=== PATIENT | female | born 1970 | race Caucasian/White ===

== ENCOUNTER 2016-08-27 17:24 | Emergency (ER) | payer BC ==
[2016-08-27] MEDS ORDERED: Amoxicillin/Potassium Clav 875 MG TAB ONE (17:40)
[2016-08-27] MEDS ORDERED: Ibuprofen 800 MG TAB ONE (17:57)
== END 2016-08-27 18:05 | disposition home or self-care (01) ==
LOC: BURERS 17:24
DX: S61.255A Open bite of left ring finger without damage to nail, initial encounter (principal); L03.012 Cellulitis of left finger; W55.01XA Bitten by cat, initial encounter
CPT/HCPCS: 99283

== ENCOUNTER 2019-06-01 12:15 | Inpatient (IN) | payer BC ==
[2019-06-01] MEDS ORDERED: HYDROcodone/Acetaminophen 5/325 mg Tablet PO PRN (13:08)
[2019-06-01] MEDS ORDERED: HYDROcodone/Acetaminophen 10/325 mg Tablet PO PRN (13:08)
[2019-06-01] MEDS ORDERED: Acetaminophen 325 MG TAB PO PRN (13:08)
[2019-06-01] MEDS ORDERED: Ondansetron ODT 4 MG TAB PO PRN (13:08)
[2019-06-01] MEDS ORDERED: Bisacodyl 10 MG SUPP PR PRN (13:08)
[2019-06-01] MEDS ORDERED: Dextrose 50% Abboject 50 ML SYRINGE SLOW IVP PRN (13:08)
[2019-06-01] MEDS ORDERED: Dextrose 5% in Water 1,000 ML IV PRN (13:08)
[2019-06-01] MEDS ORDERED: Enoxaparin Sodium 40 MG/0.4 ML SYRINGE SC SCH (13:15)
[2019-06-01] MEDS ORDERED: Meropenem 1 GM in Sodium Chloride 0.9% 100 ML IVPB SCH (14:00)
[2019-06-01 14:03] LABS: #Basophils 0.1 thou/uL (0.0-0.2); #Eosinphils 0.1 thou/uL (0.0-0.7); #Lymphocytes 2.2 thou/uL (1.20-3.40); #Monocytes 0.9 thou/uL (0.11-0.59); #Neutrophils 4.9 thou/uL (1.40-6.50); %Basophils 1.3 % (0.0-1.0); %Eosinophils 1.7 % (0.0-10.0); %Lymphocytes 27.2 % (21.0-51.0); %Monocytes 10.5 % (0.0-10.0); %Neutrophils 59.4 % (42.0-75.0); ALT (SGPT) 21 U/L (8-55); AST (SGOT) 18 U/L (5-34); Albumin 3.8 g/dL (3.5-5.0); Alkaline Phosphatase 135 U/L (40-110); Anion Gap 14 mmol/L (10-20); BUN (Urea Nitrogen) 12 mg/dL (7.0-18.7); Bilirubin, Total 0.5 mg/dL (0.2-1.2); Calc. Creatinine Clearance 0 mL/min (70-130); Calcium 9.8 mg/dL (7.8-10.44); Carbon Dioxide 24 mmol/L (22-29); Chloride 102 mmol/L (98-107); Estimated GFR-MDRD 63; Globulin 3.9 g/dL (2.4-3.5); Glucose 326 mg/dL (70-105); Hemoglobin 14.8 g/dL (12.0-16.0); Mean Corpuscular HGB CONC 31.5 g/dL (32.0-36.0); Mean Corpuscular Hemoglobin 28.6 pg (27.0-31.0); Mean Corpuscular Volume 90.7 fL (78.0-98.0); Mean Platelet Volume 8.4 fL (7.4-10.4); Platelet Count 225 thou/uL (130-400); Potassium 3.9 mmol/L (3.5-5.1); Protein, Total 7.7 g/dL (6.0-8.3); RBC Distribution Width 12.3 % (11.5-14.5); Red Blood Cell (RBC) Count 5.19 mill/uL (4.20-5.40); Sodium 136 mmol/L (136-145); White Blood Cell (WBC) Count 8.2 thou/uL (4.8-10.8)
[2019-06-01] MEDS: Meropenem 1,000 MG in Sodium Chloride 0.9% 100 ML IVPB SCH (17:50)
[2019-06-01] MEDS: HumaLOG 300 UNITS/3 ML VIAL SC PRN ×2 (18:15→20:43)
[2019-06-01] MEDS ORDERED: Furosemide 20 MG/2 ML VIAL SLOW IVP SCH (18:30)
[2019-06-01] MEDS: Famotidine 20 MG TAB PO SCH (20:31)
[2019-06-01] MEDS: Atorvastatin Calcium 10 MG TAB PO SCH (20:32)
[2019-06-01] MEDS: Vancomycin HCl 1 GM in Sodium Chloride 0.9% 250 ML 250 ML IVPB SCH (20:32)
[2019-06-01] MEDS: Lantus 1000 UNITS/10 ML VIAL SC SCH (20:33)
[2019-06-01] MEDS ORDERED: Insulin Glargine 65 UNITS in Pre-Filled Syringe 1 EACH SC SCH (21:00)
--- NOTE | 2019-06-02 00:30 | HP ---
CHIEF COMPLAINT: Worsening cellulitis of the right leg. HISTORY OF PRESENT ILLNESS: Ms. Rhodes is a 48-year-old female, with past medical history of morbid obesity, insulin-dependent diabetes mellitus, history of MRSA, and medical noncompliance, who presented to the outpatient setting earlier in the week complaining of redness to the posterior aspect of her right calf. She had recently finished treatment for a wound to the right posterior heel, which resolved with antibiotics and wound care. She was not having any fever, but felt the tightness forming to the right leg. It was slightly sore to the touch. Her noticed that and advised her to seek evaluation. In the clinic, she was thought to have cellulitis. She was started on Keflex and Bactrim and given 1 g of Rocephin. She was instructed to follow up in 48 hours and was seen again yesterday with no increase in progression of the erythema, but continued warmth. She was given another gram of Rocephin and instructed to follow up on Tuesday for another evaluation. However, this morning, she noted that her leg was now warm to the anterior portion and called the office for direction, in which we instructed direct admission for IV antibiotic treatment. She has not had any fever, nausea, vomiting, diarrhea. The patient with a history of medical noncompliance, who has historically had poor diabetic control. Over the last several weeks, I have requested she bring in logs of her glucose values, but she has not. She has resumed her insulin at home for the last couple of weeks and reports that her glucose values have consistently decreased from the 300 to the 200s and now are usually below 200 at home when she checks. She and her have also had some recent stressors in their marriage, which is added to her stress and difficulty with medication compliance. 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 PAST MEDICAL HISTORY: 1. Insulin-dependent diabetes mellitus. 2. Major depression. 3. History of MRSA. 4. Morbid obesity. 5. Chronic venous stasis. 6. Hypertension. 7. History of endometriosis. 8. Lymphedema. PAST SURGICAL HISTORY: Hysterectomy and cholecystectomy. ALLERGIES: NO KNOWN DRUG ALLERGIES. FAMILY HISTORY: Her mother in her 70s of CHF. Her father of coronary artery disease in his 70s. SOCIAL HISTORY: She is . She is a nonsmoker and does not drink alcohol. She does not have any children. She has an aunt that she cares for, who does not drive and does not live with them. Historically has desired full code status. MEDICATIONS: 1. Toujeo 65 units subcu at bedtime. 2. Zocor 20 mg p.o. at bedtime. 3. Lisinopril 10 mg p.o. daily. 4. Metformin 1000 mg p.o. b.i.d. REVIEW OF SYSTEMS: GENERAL: No fever, chills, weakness or rigors. HEENT: Denies vision changes, eye pain, rhinorrhea, nasal congestion, sore throat, ear pain. CARDIOVASCULAR: Denies chest pain, palpitations, orthopnea, PND. RESPIRATORY: Denies cough, wheezing, shortness of breath, hemoptysis. GENITOURINARY: Denies dysuria, urinary frequency, urgency, gross hematuria. GASTROINTESTINAL: Denies nausea, vomiting, constipation, diarrhea, hematochezia , melena. LYMPH: The patient with chronic lymphedema. HEMATOLOGIC: The patient denies bleeding or easy bruising. PSYCHIATRIC: The patient has had some social stressors, but denies any recurrent depressive symptoms or anxiety other than related to recent events at home. PHYSICAL EXAMINATION: VITAL SIGNS: Temperature 98.4, pulse 90, respirations 20, O2 sat 99% on room air, and blood pressure 143/76. GENERAL: Well-developed, morbidly obese, female, in no acute distress , lying supine in bed. Alert and oriented x3. HEENT: Normocephalic and atraumatic. Pupils equally round and reactive to light and accommodation, extraocular muscles intact. Nares are patent without discharge. Tongue protrudes in midline. Wears corrective lenses. NECK: Supple without lymphadenopathy, thyromegaly, JVD or bruit. HEART: Regular rate and rhythm. Normal S1 and S2. No murmurs, clicks, rubs or gallops. LUNGS: Clear to auscultation with good air entry bilaterally. No crackles or wheezes. ABDOMEN: Positive bowel sounds in all 4 quadrants. Soft, nontender, and nondistended. No masses, guarding or rebound tenderness. EXTREMITIES: No cyanosis or clubbing, chronic 2-mm nonpitting edema bilaterally below the knee with venous stasis changes, more pronounced to the distal left lower extremity compared to right with erythema, that is slightly more pronounced to the posterior right calf measuring approximately 1.5 inches in diameter with underlying induration, but no local fluctuance or abscess formation. The anterior right lower extremity is slightly pink in color and warm to the touch. NEUROLOGIC: Cranial nerves 2 through 12 grossly intact with no focal deficits. LABORATORY DATA: White count 8.2 with 59% neutrophils, 27% lymphocytes, hemoglobin 14.8, hematocrit 47.0, and platelets 225. Sodium 136, potassium 3.9, chloride 102, bicarb 24, BUN 12, creatinine 0.94, glucose 326, and calcium 9.8. T bilirubin 0.5, AST 18, ALT 21, alk phos 135, and albumin 3.8. Blood cultures pending x2. ASSESSMENT/PLAN: 1. Right lower extremity cellulitis in diabetic. Failed outpatient treatment. The patient will be admitted and started on meropenem and vancomycin per [facility]. We will have pharmacy to monitor vanc troughs and adjust dosing accordingly. Follow up blood cultures. Repeat CBC and BMP in the a.m. Elevate. If the rash becomes fluctuant, we will perform incision and drainage as appropriate. 2. Insulin-dependent diabetes mellitus. The patient will be placed on her home regimen with Accu-Cheks q.a.c. and at bedtime with a moderate and bedtime correction hyperglycemia algorithm with lispro. She will be continued on metformin. 3. Hypertension. She will be continued on her lisinopril. We will monitor her blood pressure and give a heart healthy diet. 4. Social stressors. The patient denies need for medication treatment at this time. We will monitor. 5. Hyperlipidemia. The patient will be continued on her statin. 6. Morbid obesity. The patient will be encouraged ambulation and weight loss. 7. Prophylaxis. She will be placed on Pepcid and Lovenox subcu secondary to the cellulitis of the lower extremities, for which SCDs would be uncomfortable. 8. Code status. The patient will be a full code. Job ID: [id number] [facility]
[2019-06-02] MEDS ORDERED: Meropenem 1,000 MG in Sodium Chloride 0.9% 100 ML IVPB SCH (02:45)
[2019-06-02] MEDS: Meropenem 1,000 MG in Sodium Chloride 0.9% 100 ML IVPB SCH (02:48)
[2019-06-02 05:42] LABS: Anion Gap 12 mmol/L (10-20); BUN (Urea Nitrogen) 11 mg/dL (7.0-18.7); Calc. Creatinine Clearance 219 mL/min (70-130); Calcium 9.1 mg/dL (7.8-10.44); Carbon Dioxide 26 mmol/L (22-29); Chloride 104 mmol/L (98-107); Estimated GFR-MDRD 86; Glucose 173 mg/dL (70-105); Sodium 138 mmol/L (136-145)
[2019-06-02 05:59] LABS: Band 1 % (5-11); Eosinophils 4 % (0-10); Hemoglobin 13.6 g/dL (12.0-16.0); Lymphocytes 35 % (21-51); MDiff Complete? YES; Mean Corpuscular Hemoglobin 29.6 pg (27.0-31.0); Mean Corpuscular Volume 89.8 fL (78.0-98.0); Mean Platelet Volume 8.2 fL (7.4-10.4); Monocytes 10 % (0-10); Neutrophil 50 % (42-75); Platelet Count 206 thou/uL (130-400); Platelet Morphology Comment Appears Adequate; RBC Distribution Width 12.1 % (11.5-14.5); RBC Morphology Normal; Red Blood Cell (RBC) Count 4.66 mill/uL (4.20-5.40); White Blood Cell (WBC) Count 6.1 thou/uL (4.8-10.8)
[2019-06-02] MEDS ORDERED: [UNRECOGNIZED DRUG - OTHER] SC SCH (09:00)
[2019-06-02] MEDS ORDERED: INSULIN GLARGINE HUM REC ANLOG 65 UNIT SC SCH (09:00)
[2019-06-02] MEDS: Enoxaparin Sodium 40 MG/0.4 ML SYRINGE SC SCH (09:15)
[2019-06-02] MEDS: Famotidine 20 MG TAB PO SCH ×2 (09:16→20:46)
[2019-06-02] MEDS: Lisinopril 10 MG TAB PO SCH (09:16)
[2019-06-02] MEDS: metFORMIN 500 MG TAB PO SCH ×2 (09:17→20:47)
[2019-06-02] MEDS: Vancomycin HCl 1 GM in Sodium Chloride 0.9% 250 ML 250 ML IVPB SCH ×2 (09:18→20:48)
[2019-06-02] MEDS: HumaLOG 300 UNITS/3 ML VIAL SC PRN ×3 (09:21→20:43)
[2019-06-02] MEDS ORDERED: Meropenem 1 GM in Sodium Chloride 0.9% 100 ML IVPB SCH (10:00)
[2019-06-02] MEDS: Meropenem 500 MG in Sodium Chloride 0.9% 100 ML IVPB SCH ×4 (10:59→17:38)
[2019-06-02] MEDS: Meropenem 1 GM in Sodium Chloride 0.9% 100 ML IVPB SCH (19:33)
[2019-06-02] MEDS: Lantus 1000 UNITS/10 ML VIAL SC SCH (20:43)
[2019-06-02] MEDS: Atorvastatin Calcium 10 MG TAB PO SCH (20:46)
[2019-06-03] MEDS ORDERED: Meropenem 1 GM in Sodium Chloride 0.9% 100 ML IVPB SCH (02:00)
[2019-06-03] MEDS: Meropenem 1 GM in Sodium Chloride 0.9% 100 ML IVPB SCH ×3 (02:11→17:28)
[2019-06-03] MEDS: Enoxaparin Sodium 40 MG/0.4 ML SYRINGE SC SCH (08:52)
[2019-06-03] MEDS: metFORMIN 500 MG TAB PO SCH ×2 (08:53→21:44)
[2019-06-03] MEDS: Lisinopril 10 MG TAB PO SCH (08:53)
[2019-06-03] MEDS: Famotidine 20 MG TAB PO SCH ×2 (08:53→21:44)
[2019-06-03] MEDS: Vancomycin HCl 1 GM in Sodium Chloride 0.9% 250 ML 250 ML IVPB SCH ×2 (08:55→21:43)
[2019-06-03] MEDS: HumaLOG 300 UNITS/3 ML VIAL SC PRN ×3 (12:53→21:48)
[2019-06-03] MEDS: Atorvastatin Calcium 10 MG TAB PO SCH (21:44)
[2019-06-03] MEDS: Lantus 1000 UNITS/10 ML VIAL SC SCH (21:48)
[2019-06-04] MEDS: Meropenem 1 GM in Sodium Chloride 0.9% 100 ML IVPB SCH ×3 (01:29→19:47)
[2019-06-04 05:49] LABS: Hemoglobin 14.2 g/dL (12.0-16.0); Platelet Count 234 thou/uL (130-400)
[2019-06-04 05:58] LABS: Calc. Creatinine Clearance 263 mL/min (70-130); Estimated GFR-MDRD Greater than 90
[2019-06-04] MEDS: Enoxaparin Sodium 40 MG/0.4 ML SYRINGE SC SCH (08:56)
[2019-06-04] MEDS: metFORMIN 500 MG TAB PO SCH ×2 (08:57→21:07)
[2019-06-04] MEDS: Vancomycin HCl 1 GM in Sodium Chloride 0.9% 250 ML 250 ML IVPB SCH ×2 (08:58→22:06)
[2019-06-04] MEDS: Famotidine 20 MG TAB PO SCH ×2 (08:58→21:07)
[2019-06-04] MEDS: Lisinopril 10 MG TAB PO SCH (08:58)
[2019-06-04 14:09] VITALS: BMI 55.0
[2019-06-04 20:23] LABS: Vancomycin, Trough 6.2 ug/mL
[2019-06-04] MEDS: Atorvastatin Calcium 10 MG TAB PO SCH (21:07)
[2019-06-04] MEDS: Lantus 1000 UNITS/10 ML VIAL SC SCH (21:07)
[2019-06-05] MEDS: Meropenem 1 GM in Sodium Chloride 0.9% 100 ML IVPB SCH ×3 (02:42→17:46)
[2019-06-05] MEDS ORDERED: HumaLOG 300 UNITS/3 ML VIAL SC SCH (07:30)
[2019-06-05] MEDS: Vancomycin HCl 750 MG in Sodium Chloride 0.9% 250 ML 250 ML IVPB SCH ×2 (08:33→21:05)
[2019-06-05] MEDS ORDERED: Vancomycin HCl 1.75 GM in Sodium Chloride 0.9% 500 ML IVPB SCH (09:00)
[2019-06-05] MEDS ORDERED: Vancomycin HCl 1 GM in Sodium Chloride 0.9% 250 ML 250 ML IVPB SCH (09:00)
[2019-06-05] MEDS: Enoxaparin Sodium 40 MG/0.4 ML SYRINGE SC SCH (09:11)
[2019-06-05] MEDS: Famotidine 20 MG TAB PO SCH ×2 (09:11→21:02)
[2019-06-05] MEDS: Lisinopril 10 MG TAB PO SCH (09:12)
[2019-06-05] MEDS: metFORMIN 500 MG TAB PO SCH ×2 (09:13→21:03)
[2019-06-05] MEDS: Vancomycin HCl 1 GM in Sodium Chloride 0.9% 250 ML 250 ML IVPB SCH ×2 (10:37→21:05)
[2019-06-05] MEDS: HumaLOG 300 UNITS/3 ML VIAL SC PRN (12:55)
[2019-06-05] MEDS: Lantus 1000 UNITS/10 ML VIAL SC SCH (21:01)
[2019-06-05] MEDS: Atorvastatin Calcium 10 MG TAB PO SCH (21:03)
[2019-06-06] MEDS: Meropenem 1 GM in Sodium Chloride 0.9% 100 ML IVPB SCH ×3 (01:19→16:14)
[2019-06-06 06:12] LABS: #Basophils 0.1 thou/uL (0.0-0.2); #Eosinphils 0.2 thou/uL (0.0-0.7); #Lymphocytes 2.4 thou/uL (1.20-3.40); #Monocytes 0.9 thou/uL (0.11-0.59); #Neutrophils 2.7 thou/uL (1.40-6.50); %Basophils 1.5 % (0.0-1.0); %Eosinophils 3.5 % (0.0-10.0); %Lymphocytes 38.3 % (21.0-51.0); %Monocytes 13.8 % (0.0-10.0); Hemoglobin 14.3 g/dL (12.0-16.0); Mean Corpuscular HGB CONC 32.3 g/dL (32.0-36.0); Mean Corpuscular Volume 89.8 fL (78.0-98.0); Mean Platelet Volume 7.8 fL (7.4-10.4); Platelet Count 270 thou/uL (130-400); Red Blood Cell (RBC) Count 4.94 mill/uL (4.20-5.40); White Blood Cell (WBC) Count 6.3 thou/uL (4.8-10.8)
[2019-06-06 06:23] LABS: Anion Gap 14 mmol/L (10-20); BUN (Urea Nitrogen) 11 mg/dL (7.0-18.7); Calc. Creatinine Clearance 256 mL/min (70-130); Calcium 9.5 mg/dL (7.8-10.44); Carbon Dioxide 24 mmol/L (22-29); Chloride 106 mmol/L (98-107); Estimated GFR-MDRD Greater than 90; Glucose 99 mg/dL (70-105); Potassium 3.5 mmol/L (3.5-5.1); Sodium 140 mmol/L (136-145)
[2019-06-06] MEDS ORDERED: HumaLOG 300 UNITS/3 ML VIAL SC SCH (07:30)
[2019-06-06] MEDS: metFORMIN 500 MG TAB PO SCH ×2 (07:51→21:16)
[2019-06-06] MEDS: Famotidine 20 MG TAB PO SCH ×2 (07:51→21:16)
[2019-06-06] MEDS: Lisinopril 10 MG TAB PO SCH (07:52)
[2019-06-06] MEDS: Enoxaparin Sodium 40 MG/0.4 ML SYRINGE SC SCH (08:01)
[2019-06-06] MEDS: Vancomycin HCl 750 MG in Sodium Chloride 0.9% 250 ML 250 ML IVPB SCH ×2 (09:08→21:26)
[2019-06-06] MEDS: Vancomycin HCl 1 GM in Sodium Chloride 0.9% 250 ML 250 ML IVPB SCH ×2 (09:08→21:25)
[2019-06-06] MEDS: HumaLOG 300 UNITS/3 ML VIAL SC SCH ×2 (13:03→17:55)
[2019-06-06] MEDS: Atorvastatin Calcium 10 MG TAB PO SCH (21:16)
[2019-06-06] MEDS: Lantus 1000 UNITS/10 ML VIAL SC SCH (21:36)
[2019-06-07] MEDS: Meropenem 1 GM in Sodium Chloride 0.9% 100 ML IVPB SCH ×2 (00:03→07:36)
[2019-06-07 05:07] VITALS: BP 128/64; TEMP 98
[2019-06-07] MEDS: metFORMIN 500 MG TAB PO SCH (08:43)
[2019-06-07] MEDS: Famotidine 20 MG TAB PO SCH (08:43)
[2019-06-07] MEDS: Lisinopril 10 MG TAB PO SCH (08:44)
[2019-06-07] MEDS: HumaLOG 300 UNITS/3 ML VIAL SC SCH ×2 (08:45→13:23)
[2019-06-07] MEDS: Enoxaparin Sodium 40 MG/0.4 ML SYRINGE SC SCH (08:47)
[2019-06-07] MEDS: Vancomycin HCl 1 GM in Sodium Chloride 0.9% 250 ML 250 ML IVPB SCH (08:48)
[2019-06-07] MEDS: Vancomycin HCl 750 MG in Sodium Chloride 0.9% 250 ML 250 ML IVPB SCH (10:43)
--- NOTE | 2019-06-08 20:31 | DIS ---
DATE OF ADMISSION: 06/01/2019 DATE OF DISCHARGE: 06/07/2019 ADMISSION DIAGNOSES: 1. Right lower extremity cellulitis in a diabetic. 2. Insulin-dependent diabetes mellitus. 3. Hypertension. 4. Social stressors. 5. Hyperlipidemia. 6. Morbid obesity. DISCHARGE DIAGNOSES: 1. Right lower extremity cellulitis in a diabetic. 2. Insulin-dependent diabetes mellitus. 3. Hypertension. 4. Social stressors. 5. Hyperlipidemia. 6. Morbid obesity. PROCEDURES: Blood cultures x2 with no growth at 5 days. HISTORY AND PHYSICAL: Please see dictated report from the date of admission. HOSPITAL COURSE: Ms. Rhodes is a 48-year-old female with past medical history of morbid obesity, insulin-dependent diabetes mellitus, history of previous MRSA and hospitalizations for abscess/panniculitis in the past, and medication noncompliance, who presented to the ambulatory setting with a focal area of erythema to the right posterior calf. She was given Rocephin and attempted outpatient management x 2, but it progressed to include warmth to the anterior portion of the right lower extremity and thus she presented to the emergency department for further evaluation for possible hospitalization over the holiday. The patient had not had any fever at home and had not had any drainage from the area of cellulitis and had no focal abscess. She has a history of type 2 diabetes and the control of this was uncertain as an outpatient. She had not had recent labs despite office request. The patient was admitted, placed on meropenem and vancomycin with the pharmacy adjusting the vancomycin according to the trough values. Over the course of her admission, this was slow to improve with focalization of the cellulitis and resolution of the anterior right lower extremity erythema and warmth. However, even with the cellulitis becoming more localized, it never became fluctuant in order to be drained. However, it has improved to less than half an inch in diameter and she will continue to apply warm compresses to the area 15 minutes 3 times daily going forward and will resume her oral medication of Keflex and Bactrim at her discharge. She has a recent history of a right heel ulcer that has been treated and she is going to go see Podiatry for that and diabetic foot care today after her dismissal here. Regarding her diabetes, her regimen was adjusted and levels controlled with 65 units of Lantus subcu daily and 7 units of Humalog before meals. I am going to dismiss her on 65 units of the Toujeo and 5 units subcu before meals at home and she is going to closely watch her diet. I discussed medication compliance with her extensively and she assures me that she will set reminders to take her insulin and monitor her blood glucose. The patient did have some social stressors at home, but is working through them and did not need any medication for depression or adjustment disorder at this time. DISPOSITION: Discharged home. MEDICATIONS: 1. Toujeo 65 units subcu daily. 2. Simvastatin 20 mg p.o. at bedtime. 3. Lisinopril 10 mg daily. 4. Metformin 1000 mg p.o. b.i.d. 5. Humalog 5 units subcu before meals. CONDITION: Good. FOLLOWUP: With Dr. Dedra Doyle in approximately 3 to 5 days. Job ID: [id number] [facility]
== END 2019-06-07 16:00 | disposition home or self-care (01) | DRG 638 ==
LOC: BURMED 12:15
PROVIDERS: ADMIT Family Medicine; ATTEND Family Medicine
DX: E11.628 Type 2 diabetes mellitus with other skin complications (principal); L03.115 Cellulitis of right lower limb; Z68.43 Body mass index [BMI] 50.0-59.9, adult; Z79.4 Long term (current) use of insulin; I10 Essential (primary) hypertension; E78.5 Hyperlipidemia, unspecified; E66.01 Morbid (severe) obesity due to excess calories; Z91.14 Patient's other noncompliance with medication regimen; F32.9 Major depressive disorder, single episode, unspecified; Z90.49 Acquired absence of other specified parts of digestive tract; Z90.710 Acquired absence of both cervix and uterus; Z79.84 Long term (current) use of oral hypoglycemic drugs; Z79.899 Other long term (current) drug therapy
CPT/HCPCS: 36415; 36416; 80048; 80053; 80202; 82565; 85007; 85014; 85018; 85025; 85027; 85049; 87040; J1650; J1815; J1940; J2185; J3370; J3490; J7050

== ENCOUNTER 2019-07-09 16:14 | Inpatient (IN) | payer BC ==
[2019-07-09 17:35] VITALS: BMI 54.6
[2019-07-09] MEDS ORDERED: Ondansetron ODT 4 MG TAB PO PRN (17:45)
[2019-07-09] MEDS ORDERED: Bisacodyl 10 MG SUPP PR PRN (17:45)
[2019-07-09] MEDS ORDERED: Dextrose 5% in Water 1,000 ML IV PRN (17:52)
[2019-07-09] MEDS ORDERED: Dextrose 50% Abboject 50 ML SYRINGE SLOW IVP PRN (17:52)
[2019-07-09 19:09] LABS: ALT (SGPT) 26 U/L (8-55); AST (SGOT) 21 U/L (5-34); Albumin 3.5 g/dL (3.5-5.0); Alkaline Phosphatase 105 U/L (40-110); Anion Gap 15 mmol/L (10-20); BUN (Urea Nitrogen) 18 mg/dL (7.0-18.7); Bilirubin, Total 0.6 mg/dL (0.2-1.2); Calc. Creatinine Clearance 190 mL/min (70-130); Calcium 10.1 mg/dL (7.8-10.44); Carbon Dioxide 25 mmol/L (22-29); Chloride 101 mmol/L (98-107); Estimated GFR-MDRD 73; Globulin 4.2 g/dL (2.4-3.5); Glucose 200 mg/dL (70-105); Potassium 3.6 mmol/L (3.5-5.1); Protein, Total 7.7 g/dL (6.0-8.3); Sodium 137 mmol/L (136-145)
[2019-07-09 19:17] LABS: Band 11 % (5-11); Hemoglobin 14.7 g/dL (12.0-16.0); Lymphocytes 20 % (21-51); MDiff Complete? YES; Mean Corpuscular Volume 90.6 fL (78.0-98.0); Mean Platelet Volume 9.7 fL (7.4-10.4); Monocytes 7 % (0-10); Neutrophil 62 % (42-75); Platelet Count 192 thou/uL (130-400); RBC Distribution Width 12.1 % (11.5-14.5); Red Blood Cell (RBC) Count 5.07 mill/uL (4.20-5.40); White Blood Cell (WBC) Count 12.1 thou/uL (4.8-10.8)
[2019-07-09] MEDS ORDERED: Vancomycin HCl 1 GM in Sodium Chloride 0.9% 250 ML 250 ML IVPB SCH (20:00)
[2019-07-09] MEDS ORDERED: Vancomycin HCl 1.75 GM in Sodium Chloride 0.9% 500 ML IVPB SCH (21:00)
[2019-07-09] MEDS ORDERED: Vancomycin HCl 750 MG in Sodium Chloride 0.9% 250 ML 250 ML IVPB SCH (21:00)
[2019-07-09] MEDS: Saccharomyces boulardii 250 MG CAP PO SCH (21:10)
[2019-07-09] MEDS: Atorvastatin Calcium 10 MG TAB PO SCH (21:10)
[2019-07-09] MEDS: Famotidine 20 MG TAB PO SCH (21:11)
[2019-07-09] MEDS: HumaLOG 300 UNITS/3 ML VIAL SC PRN (21:11)
[2019-07-09] MEDS: HYDROcodone/Acetaminophen 5/325 mg Tablet PO PRN (22:48)
[2019-07-09] MEDS ORDERED: diphenhydrAMINE 50 MG/ML VIAL ONE (23:20)
[2019-07-09] MEDS ORDERED: methylPREDNISolone Sod Succ/PF 125 MG/2 ML VIAL ONE (23:20)
[2019-07-10] MEDS: Meropenem 1 GM in Sodium Chloride 0.9% 100 ML IVPB SCH ×4 (00:01→23:36)
[2019-07-10] MEDS ORDERED: methylPREDNISolone Sod Succ/PF 125 MG/2 ML VIAL IVP SCH (00:15)
[2019-07-10] MEDS ORDERED: diphenhydrAMINE 50 MG/ML VIAL IVP SCH (00:15)
[2019-07-10] MEDS ORDERED: Bacteriostatic Water 30 ML VIAL FS SCH (00:15)
[2019-07-10 05:17] LABS: Anion Gap 14 mmol/L (10-20); BUN (Urea Nitrogen) 17 mg/dL (7.0-18.7); Calc. Creatinine Clearance 195 mL/min (70-130); Calcium 9.5 mg/dL (7.8-10.44); Carbon Dioxide 21 mmol/L (22-29); Chloride 103 mmol/L (98-107); Estimated GFR-MDRD 75; Glucose 337 mg/dL (70-105); Potassium 4.3 mmol/L (3.5-5.1); Sodium 134 mmol/L (136-145)
[2019-07-10 05:45] LABS: Band 15 % (5-11); Hemoglobin 13.3 g/dL (12.0-16.0); Lymphocytes 7 % (21-51); MDiff Complete? YES; Mean Corpuscular Hemoglobin 28.8 pg (27.0-31.0); Mean Corpuscular Volume 89.8 fL (78.0-98.0); Mean Platelet Volume 8.4 fL (7.4-10.4); Monocytes 3 % (0-10); Neutrophil 75 % (42-75); Platelet Count 162 thou/uL (130-400); Platelet Morphology Comment Appears Adequate; RBC Distribution Width 12.1 % (11.5-14.5); RBC Morphology Normal; Red Blood Cell (RBC) Count 4.63 mill/uL (4.20-5.40); Toxic Granulation SLIGHT; White Blood Cell (WBC) Count 8.7 thou/uL (4.8-10.8)
[2019-07-10] MEDS: Lantus 1000 UNITS/10 ML VIAL SC SCH (07:47)
[2019-07-10] MEDS: HumaLOG 300 UNITS/3 ML VIAL SC SCH ×3 (07:48→18:29)
[2019-07-10] MEDS: HumaLOG 300 UNITS/3 ML VIAL SC PRN ×4 (07:48→21:28)
[2019-07-10] MEDS ORDERED: Linezolid 600 MG in Premix Bag 1 BAG IVPB SCH (09:00)
[2019-07-10] MEDS: Saccharomyces boulardii 250 MG CAP PO SCH ×2 (09:08→21:27)
[2019-07-10] MEDS: metFORMIN 500 MG TAB PO SCH ×2 (09:08→18:31)
[2019-07-10] MEDS: Lisinopril 10 MG TAB PO SCH (09:09)
[2019-07-10] MEDS: Famotidine 20 MG TAB PO SCH ×2 (09:09→21:27)
[2019-07-10] MEDS: Enoxaparin Sodium 40 MG/0.4 ML SYRINGE SC SCH (09:10)
[2019-07-10] MEDS: Linezolid 600 MG TAB PO SCH ×2 (09:45→10:09)
[2019-07-10] MEDS: Atorvastatin Calcium 10 MG TAB PO SCH (21:27)
[2019-07-10] MEDS: Acetaminophen 325 MG TAB PO PRN (21:28)
[2019-07-10] MEDS: Linezolid 600 MG in Premix Bag 1 BAG IVPB SCH (21:29)
[2019-07-11] MEDS: HYDROcodone/Acetaminophen 5/325 mg Tablet PO PRN (00:36)
[2019-07-11] MEDS: Meropenem 1 GM in Sodium Chloride 0.9% 100 ML IVPB SCH ×3 (06:16→23:10)
[2019-07-11] MEDS: HumaLOG 300 UNITS/3 ML VIAL SC SCH ×3 (09:15→17:51)
[2019-07-11] MEDS: HumaLOG 300 UNITS/3 ML VIAL SC PRN ×3 (09:16→17:51)
[2019-07-11] MEDS: Lantus 1000 UNITS/10 ML VIAL SC SCH (09:17)
[2019-07-11] MEDS: Enoxaparin Sodium 40 MG/0.4 ML SYRINGE SC SCH (09:21)
[2019-07-11] MEDS: Saccharomyces boulardii 250 MG CAP PO SCH ×2 (09:24→20:54)
[2019-07-11] MEDS: Lisinopril 10 MG TAB PO SCH (09:24)
[2019-07-11] MEDS: Famotidine 20 MG TAB PO SCH ×2 (09:24→20:54)
[2019-07-11] MEDS: metFORMIN 500 MG TAB PO SCH ×2 (09:24→18:04)
[2019-07-11] MEDS: Linezolid 600 MG in Premix Bag 1 BAG IVPB SCH ×2 (09:26→20:52)
[2019-07-11] MEDS: Atorvastatin Calcium 10 MG TAB PO SCH (20:54)
[2019-07-12 04:55] LABS: #Basophils 0.2 thou/uL (0.0-0.2); #Eosinphils 0.1 thou/uL (0.0-0.7); #Lymphocytes 3.5 thou/uL (1.20-3.40); #Monocytes 0.9 thou/uL (0.11-0.59); #Neutrophils 2.7 thou/uL (1.40-6.50); %Basophils 2.5 % (0.0-1.0); %Eosinophils 1.7 % (0.0-10.0); %Lymphocytes 46.4 % (21.0-51.0); %Monocytes 12.7 % (0.0-10.0); %Neutrophils 36.7 % (42.0-75.0); Hemoglobin 13.4 g/dL (12.0-16.0); Mean Corpuscular HGB CONC 33.1 g/dL (32.0-36.0); Mean Corpuscular Hemoglobin 29.2 pg (27.0-31.0); Mean Corpuscular Volume 88.5 fL (78.0-98.0); Mean Platelet Volume 7.9 fL (7.4-10.4); Platelet Count 192 thou/uL (130-400); Red Blood Cell (RBC) Count 4.59 mill/uL (4.20-5.40); White Blood Cell (WBC) Count 7.4 thou/uL (4.8-10.8)
[2019-07-12 05:02] LABS: Anion Gap 15 mmol/L (10-20); BUN (Urea Nitrogen) 19 mg/dL (7.0-18.7); Calc. Creatinine Clearance 229 mL/min (70-130); Calcium 8.9 mg/dL (7.8-10.44); Carbon Dioxide 20 mmol/L (22-29); Chloride 108 mmol/L (98-107); Estimated GFR-MDRD 90; Glucose 174 mg/dL (70-105); Sodium 139 mmol/L (136-145)
[2019-07-12] MEDS: Meropenem 1 GM in Sodium Chloride 0.9% 100 ML IVPB SCH ×3 (05:48→23:06)
[2019-07-12] MEDS: Lantus 1000 UNITS/10 ML VIAL SC SCH (08:58)
[2019-07-12] MEDS: Enoxaparin Sodium 40 MG/0.4 ML SYRINGE SC SCH (08:58)
[2019-07-12] MEDS: HumaLOG 300 UNITS/3 ML VIAL SC SCH ×3 (08:58→18:08)
[2019-07-12] MEDS: Linezolid 600 MG in Premix Bag 1 BAG IVPB SCH ×2 (08:58→20:51)
[2019-07-12] MEDS: Saccharomyces boulardii 250 MG CAP PO SCH ×2 (08:59→20:51)
[2019-07-12] MEDS: Lisinopril 10 MG TAB PO SCH (08:59)
[2019-07-12] MEDS: metFORMIN 500 MG TAB PO SCH ×2 (08:59→18:08)
[2019-07-12] MEDS: Famotidine 20 MG TAB PO SCH ×2 (08:59→20:51)
[2019-07-12] MEDS: HumaLOG 300 UNITS/3 ML VIAL SC PRN (13:10)
[2019-07-12] MEDS: Atorvastatin Calcium 10 MG TAB PO SCH (20:51)
[2019-07-13] MEDS: Meropenem 1 GM in Sodium Chloride 0.9% 100 ML IVPB SCH ×3 (05:34→22:55)
[2019-07-13] MEDS: Acetaminophen 325 MG TAB PO PRN (05:43)
[2019-07-13] MEDS: HumaLOG 300 UNITS/3 ML VIAL SC SCH ×3 (08:27→18:12)
[2019-07-13] MEDS: Lantus 1000 UNITS/10 ML VIAL SC SCH (08:27)
[2019-07-13] MEDS: Famotidine 20 MG TAB PO SCH ×2 (08:28→20:49)
[2019-07-13] MEDS: Enoxaparin Sodium 40 MG/0.4 ML SYRINGE SC SCH (08:28)
[2019-07-13] MEDS: metFORMIN 500 MG TAB PO SCH ×2 (08:28→18:12)
[2019-07-13] MEDS: Saccharomyces boulardii 250 MG CAP PO SCH ×2 (08:28→20:49)
[2019-07-13] MEDS: Linezolid 600 MG in Premix Bag 1 BAG IVPB SCH ×2 (08:28→20:44)
[2019-07-13] MEDS: Lisinopril 10 MG TAB PO SCH (08:28)
[2019-07-13] MEDS: Atorvastatin Calcium 10 MG TAB PO SCH (20:49)
[2019-07-14 05:43] LABS: Calc. Creatinine Clearance 240 mL/min (70-130); Estimated GFR-MDRD Greater than 90
[2019-07-14] MEDS: Meropenem 1 GM in Sodium Chloride 0.9% 100 ML IVPB SCH (05:44)
[2019-07-14 05:49] LABS: Hemoglobin 13.9 g/dL (12.0-16.0); Platelet Count 281 thou/uL (130-400)
[2019-07-14] MEDS: metFORMIN 500 MG TAB PO SCH (08:24)
[2019-07-14] MEDS: Saccharomyces boulardii 250 MG CAP PO SCH (08:24)
[2019-07-14] MEDS: Lisinopril 10 MG TAB PO SCH (08:24)
[2019-07-14] MEDS: Famotidine 20 MG TAB PO SCH (08:24)
[2019-07-14] MEDS: HumaLOG 300 UNITS/3 ML VIAL SC SCH (08:25)
[2019-07-14] MEDS: Enoxaparin Sodium 40 MG/0.4 ML SYRINGE SC SCH (08:25)
[2019-07-14] MEDS: Linezolid 600 MG in Premix Bag 1 BAG IVPB SCH (08:25)
[2019-07-14] MEDS: Lantus 1000 UNITS/10 ML VIAL SC SCH (08:25)
[2019-07-14 10:33] VITALS: BP 144/88; TEMP 98.3
--- NOTE | 2019-07-14 23:35 | DIS ---
DATE OF ADMISSION: 07/09/2019 DATE OF DISCHARGE: 07/14/2019 ADMISSION DIAGNOSIS: Left lower leg cellulitis. SECONDARY DIAGNOSES: 1. Insulin-dependent diabetes mellitus. 2. Hypertension. 3. Dyslipidemia. 4. Lymphedema. PROCEDURES: None. HOSPITAL COURSE: A 49-year-old female with history of lymphedema and venous stasis along with morbid obesity who was admitted after development of fever, discomfort, and erythema to the left lower extremity. The patient initially had leukocytosis and her cellulitis was treated with meropenem and vancomycin. The patient had symptoms consistent with an allergic response, thought to be secondary to vancomycin. Thus, this medication was discontinued in favor of Zyvox and she was provided benadryl and steroid treatment. The patient returned back to her baseline and steadily improved in regard to the appearance of the erythema to her left lower extremity. The patient's leukocytosis resolved and her blood cultures returned negative. She has been afebrile for greater than 72 hours and is now appropriate to discharge home with further p.o. antibiotics. DISPOSITION: Patient will be discharged home where she lives with her . She may follow up with her primary care provider, Dr. Doyle, within a week. DISCHARGE MEDICATIONS: 1. Zyvox 600 mg p.o. b.i.d. x7 days. 2. Toujeo 65 units subcutaneously daily, Humalog 5 units with meals. 3. Metformin 1000 mg b.i.d. 4. Simvastatin 20 mg at bedtime. 5. Lisinopril 10 mg daily. Job ID: [id number] [facility]
--- NOTE | 2019-07-16 14:28 | HP ---
CHIEF COMPLAINT: Left leg swelling. HISTORY OF THE PRESENT ILLNESS: Ms. Tika Rhodes is a 49-year-old female with past medical history of morbid obesity, insulin-dependent type 2 diabetes with a history of intermittent compliance, hypertension, and hyperlipidemia, who presented to the ambulatory setting with a complaint of redness, warmth, pain, and rash to the left lower extremity on a background of chronic lymphedema and venous stasis dermatitis. The pain and warmth started the day prior to presentation. She has a history of a recent hospitalization for distal right lower extremity cellulitis, which she was hospitalized and treated for with IV antibiotics. This area successfully resolved with IV antibiotic treatment. She did not resume oral antibiotics at discharge. However, when this started, the patient did resume the Bactrim that she had been given during the previous episode as an outpatient before she was admitted. She had fever at home to 102.1 two days prior to admission with no obvious source. This responded to ibuprofen. The fever went down to 99.1 that evening. She has had no more fever since that time, but has had fatigue and chills. She was evaluated in my office today and was noted to have the chronic venous stasis changes to her lower legs bilaterally, left greater than right with erythema and warmth without focal induration or abscess below the knee, encompassing the entire calf and anterior surface of the distal left lower extremity except for a small linear area posterolaterally. She has been admitted for IV antibiotic treatment. The patient with a history of insulin-dependent diabetes mellitus and reports compliance with her outpatient regimen. Her glucose values have been in the 100s to occasional 200s per her report. PAST MEDICAL HISTORY: 1. Morbid obesity. 2. Insulin-dependent type 2 diabetes. 3. Chronic lymphedema bilaterally, especially to the left leg. 4. Depression. 5. Hypertension. 6. Hypercholesterolemia. 7. Severe degenerative changes throughout the lumbar spine with evidence of severe spinal stenosis at multiple levels. 8. Gallstones. 9. History of MRSA abscess. PAST SURGICAL HISTORY: 1. Hysterectomy. 2. Cholecystectomy. 3. Mobile tooth removal. 4. Right foot for plantar fasciitis. FAMILY HISTORY: Her mother was with diabetes and coronary artery disease. Her father was from myocardial infarction. She has siblings, who are alive and healthy. SOCIAL HISTORY: The patient is and lives at home with her spouse. 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 She has never smoked and does not drink alcohol or use other illicit substances. No history of drug abuse. ALLERGIES: NO KNOWN DRUG ALLERGIES. REVIEW OF SYSTEMS: CONSTITUTIONAL: The patient complains of fever, chills, fatigue, and weakness. EYES: The patient denies blurred vision, loss of vision, or pain. ENT: The patient denies earache, sore throat, runny nose, or sneezing. CARDIOVASCULAR: The patient denies chest pain, syncope, blood pressure problems, or palpitations. RESPIRATORY: The patient denies cough, shortness of breath, or chest congestion. GASTROINTESTINAL: The patient denies nausea, vomiting, diarrhea, constipation, indigestion, or pain in the abdomen. GENITOURINARY: The patient denies frequency, dysuria, urgency, or nocturia. MUSCULOSKELETAL: The patient denies joint swelling, joint pain, low back pain, or trouble walking. NEUROLOGICAL: The patient denies confusion, slurred speech, headache, focal weakness, numbness, or paresthesias. HEMATOLOGIC: The patient denies easy bruising. LYMPHATIC: The patient has chronic lower extremity edema at baseline. PSYCHIATRIC: The patient has depression and anxiety, which are controlled. PHYSICAL EXAMINATION: VITAL SIGNS: Weight 328, height 64 inches, BMI 56.29, temperature 98.2, blood pressure 110/73, respirations 18, and heart rate 108. GENERAL: This is an obese female, who is alert and oriented x4, in no acute distress. HEENT: Pupils equally round and reactive to light and accommodation. Extraocular muscles intact bilaterally. Normocephalic and atraumatic. External auditory canals are clear bilaterally. Tympanic membranes are clear, nondistorted bilaterally. No erythema. No effusion of middle ear, reflective to light. Nares are patent without discharge. Turbinates non-boggy and nonerythematous. No maxillary sinus tenderness. Tongue protrudes on the midline. No tonsillary erythema or exudates. NECK: Supple without lymphadenopathy, thyromegaly, or carotid bruit. CARDIOVASCULAR: Regular rate and rhythm. Normal S1 and S2. No murmurs, clicks, rubs, or gallops. LUNGS: Clear to auscultation bilaterally. No crackles or wheezes. Good air entry. No increased work of breathing. ABDOMEN: Positive bowel sounds in all 4 quadrants. Soft, nontender, nondistended. No masses, guarding, or rebound tenderness. Examination limited by body habitus. EXTREMITIES: No cyanosis or clubbing. The patient with chronic venous stasis to the lower legs bilaterally, left greater than right with erythema and warmth without focal induration or abscess below the knee encompassing the entire calf except for a small linear area posterolaterally. NEUROLOGICAL: Cranial nerves 2 through 12, no focal deficits. Last foot examination was May 24, 2019. ASSESSMENT AND PLAN: 1. Cellulitis of the left lower leg on a background of chronic lymphedema. The patient will be admitted and placed on IV antibiotics of meropenem and vancomycin per diabetic protocol. We will elevate the legs and encourage her to ambulate the halls frequently. We will have blood cultures x2. 2. Fever. We will give antipyretics p.r.n. and hydrate. 3. Type 2 diabetes with hyperglycemia. The patient will be placed on her home regimen with a moderate and bedtime correction algorithm with lispro with Accu-Cheks q.a.c. and at bedtime. 4. Hypertension. The patient will be continued on her home antihypertensive regimen and monitored with a goal systolic blood pressure of less than 140 and a goal diastolic blood pressure of less than 90. 5. Lymphedema. We will get an OT evaluation. 6. Hyperlipidemia. The patient will be continued on her statin therapy and given a heart healthy consistent carbohydrate diet. 7. Morbid obesity. The patient will be encouraged activity aerobically and weight loss. 8. Prophylaxis, the patient will be placed on Pepcid and given Lovenox. 9. Code status, full code. Job ID: [id number]
--- NOTE | 2019-07-17 04:51 | PQF ---
[facility] Reports Radha NAIKLPFREDERICK Preston BOBBY TABARES [id number] CLINICAL DOCUMENTATION CLARIFICATION FORM: POST DISCHARGE Addendum to original discharge summary date: 07/14/19 Late entry note date: 07/17/19 DATE: 07/17/2019 ATTN: BOBBY TABARES Please exercise your independent, professional judgment in responding to the clarification form. Clinical indicators are provided on the bottom of this form for your review Please check appropriate box(s): [ ] Cellulitis Due to Diabetes [x ] Cellulitis Not Due to Diabetes [ ] Other diagnosis [ ] Unable to determine In addition, please specify: Present on Admission (POA): [x ] Yes [ ] No [ ] Unable to determine For continuity of documentation, please document condition throughout progress notes and discharge summary. Thank You. CLINICAL INDICATORS - SIGNS / SYMPTOMS / LABS Left lower leg cellulitis - Documented in DS on 07/14 by BOBBY TABARES Insulin Dependent diabetes mellitus - Documented in DS on 07/14 by BOBBY TABARES POC Glucose level 195 on 07/09, 368 on 07/10, 244 on 07/11 and 115 on 07/13 - Documented in Laboratory RISKS: Hx of Lymphedema and venous stasis - Documented in DS on 07/14 by BOBBY TABARES HTN TREATMENT: Treated with meropenem and vancomycin IVPB - Documented in DS on 07/14 by BOBBY TABARES metformin - Documented in Medication report I (This form is maintained as a part of the permanent medical record) 2014 [employer]. All Rights Reserved [employer] [facility] [facility] Trevor Gaganrea JosephSANDEE SLOANBOBBY CARTER [id number] CLINICAL DOCUMENTATION CLARIFICATION FORM: POST DISCHARGE Addendum to original discharge summary date: 07/14/19 Late entry note date: 07/17/19 DATE: 07/17/2019 ATTN: BOBBY TABARES Please exercise your independent, professional judgment in responding to the clarification form. Clinical indicators are provided on the bottom of this form for your review Please check appropriate box(s): [ ] Cellulitis Due to Diabetes [x ] Cellulitis Not Due to Diabetes [ ] Other diagnosis [ ] Unable to determine In addition, please specify: Present on Admission (POA): [ x ] Yes [ ] No [ ] Unable to determine For continuity of documentation, please document condition throughout progress notes and discharge summary. Thank You. CLINICAL INDICATORS - SIGNS / SYMPTOMS / LABS Left lower leg cellulitis - Documented in DS on 07/14 by BOBBY TABARES Insulin Dependent diabetes mellitus - Documented in DS on 07/14 by BOBBY TABARES POC Glucose level 195 on 07/09, 368 on 07/10, 244 on 07/11 and 115 on 07/13 - Documented in Laboratory RISKS: Hx of Lymphedema and venous stasis - Documented in DS on 07/14 by BOBBY TABARES HTN TREATMENT: Treated with meropenem and vancomycin IVPB - Documented in DS on 07/14 by BOBBY TABARES metformin - Documented in Medication report (This form is maintained as a part of the permanent medical record) 2014 [id number]. All Rights Reserved MTDD
== END 2019-07-14 11:15 | disposition home or self-care (01) | DRG 603 ==
LOC: BURMED 17:00
PROVIDERS: ADMIT Family Medicine; ATTEND Family Medicine
DX: L03.116 Cellulitis of left lower limb (principal); Z68.43 Body mass index [BMI] 50.0-59.9, adult; E11.9 Type 2 diabetes mellitus without complications; I10 Essential (primary) hypertension; E78.5 Hyperlipidemia, unspecified; I89.0 Lymphedema, not elsewhere classified; E66.01 Morbid (severe) obesity due to excess calories; D72.829 Elevated white blood cell count, unspecified; Z79.4 Long term (current) use of insulin; F32.9 Major depressive disorder, single episode, unspecified; Z90.710 Acquired absence of both cervix and uterus; Z90.49 Acquired absence of other specified parts of digestive tract
CPT/HCPCS: 36415; 36416; 80048; 80053; 82565; 85007; 85014; 85018; 85025; 85027; 85049; 87040; 87081; J1200; J1650; J1815; J2020; J2185; J2930; J3370; J3490; J7050

== ENCOUNTER 2019-10-09 16:54 | Inpatient (IN) | payer BC ==
[2019-10-09 17:21] LABS: #Basophils 0.1 thou/uL (0.0-0.2); #Eosinphils 0.1 thou/uL (0.0-0.7); #Lymphocytes 2.3 thou/uL (1.20-3.40); #Monocytes 1.2 thou/uL (0.11-0.59); #Neutrophils 6.9 thou/uL (1.40-6.50); %Basophils 1.1 % (0.0-1.0); %Eosinophils 0.7 % (0.0-10.0); %Lymphocytes 21.9 % (21.0-51.0); %Monocytes 11.3 % (0.0-10.0); Hemoglobin 15.2 g/dL (12.0-16.0); Mean Corpuscular HGB CONC 31.9 g/dL (32.0-36.0); Mean Corpuscular Hemoglobin 29.2 pg (27.0-31.0); Mean Corpuscular Volume 91.5 fL (78.0-98.0); Mean Platelet Volume 9.5 fL (7.4-10.4); Platelet Count 227 thou/uL (130-400); RBC Distribution Width 11.9 % (11.5-14.5); Red Blood Cell (RBC) Count 5.22 mill/uL (4.20-5.40); White Blood Cell (WBC) Count 10.5 thou/uL (4.8-10.8)
[2019-10-09 17:31] LABS: Bilirubin Small (Negative); Blood, Urine Trace (Negative); Clarity Cloudy (Clear); Glucose, Urine (Dipstick) 500 mg/dL (Negative); Leukocyte Negative (Negative); Nitrite Negative (Negative); Protein, Urine (Dipstick) 30 mg/dL (Neg-Trace); Urobilinogen 0.2 mg/dL (Less than 2)
[2019-10-09 17:36] LABS: Bacteria/HPF 2+ HPF (None Seen); Mucous/LPF 4+ LPF (<2+); RBC/HPF 0-3 HPF (0-3); Squamous Epithelial 0-3 HPF (0-3); WBC/HPF 0-3 HPF (0-3)
[2019-10-09 17:38] LABS: ALT (SGPT) 22 U/L (8-55); AST (SGOT) 24 U/L (5-34); Albumin 3.6 g/dL (3.5-5.0); Alkaline Phosphatase 114 U/L (40-110); Anion Gap 16 mmol/L (10-20); BUN (Urea Nitrogen) 12 mg/dL (7.0-18.7); Bilirubin, Total 0.9 mg/dL (0.2-1.2); Calc. Creatinine Clearance 0 mL/min (70-130); Calcium 9.1 mg/dL (7.8-10.44); Carbon Dioxide 21 mmol/L (22-29); Chloride 106 mmol/L (98-107); Estimated GFR-MDRD 81; Globulin 3.8 g/dL (2.4-3.5); Glucose 289 mg/dL (70-105); Protein, Total 7.4 g/dL (6.0-8.3); Sodium 139 mmol/L (136-145)
[2019-10-09] MEDS ORDERED: Insulin Regular 300 UNITS/3 ML VIAL ONE (18:07)
[2019-10-09] MEDS ORDERED: Piperacillin/Tazobactam 4.5 GM VIAL ONE (18:14)
[2019-10-09] MEDS ORDERED: Sodium Chloride 0.9% 100 ML ONE (18:16)
[2019-10-09 19:38] VITALS: BMI 55.0
[2019-10-09] MEDS ORDERED: Dextrose 5% in Water 1,000 ML IV PRN (20:25)
[2019-10-09] MEDS ORDERED: Dextrose 50% Abboject 50 ML SYRINGE IVP PRN (20:25)
[2019-10-09] MEDS ORDERED: HumaLOG 300 UNITS/3 ML VIAL SC SCH (21:30)
[2019-10-09] MEDS: Atorvastatin Calcium 10 MG TAB PO SCH (21:44)
[2019-10-09] MEDS: Famotidine 20 MG TAB PO SCH (21:44)
[2019-10-09] MEDS: Acetaminophen/Codeine 30-300mg Tablet PO PRN (22:47)
[2019-10-09] MEDS: Piperacillin/Tazobactam 3.375 GM in Sodium Chloride 0.9% 100 ML IVPB SCH (23:52)
--- NOTE | 2019-10-10 00:05 | HP ---
CHIEF COMPLAINT: Cellulitis of left lower extremity. HISTORY OF PRESENT ILLNESS: This is a 49-year-old morbidly obese female with history of lymphedema and recurrent venous stasis dermatitis and cellulitis infections, who presented to the [facility] Emergency Department with complaints of fever with T-max of 100.7 along with left lower extremity pain and erythema present for the last 2 to 3 days. In addition to this, she also complained symptoms consistent with urinary tract infection. She was evaluated yesterday at the [facility] in [place] with a urinalysis consistent with UTI, for which she was prescribed p.o. ciprofloxacin. The patient reported no improvement in her symptoms to this point along with worsening findings of cellulitis to left lower extremity, prompting her arrival to the emergency department. In the emergency department, the patient was started on IV Zosyn and IV Levaquin. Due to the patient's lack of improvement with outpatient oral antibiotic therapy, she will be admitted for further treatment of her left lower extremity cellulitis and urinary tract infection. PAST MEDICAL HISTORY: Morbid obesity; insulin-dependent type 2 diabetes mellitus; chronic lymphedema bilaterally, left greater than right; depression; hypertension; hypercholesterolemia; and lumbar degenerative disk disease. PAST SURGICAL HISTORY: Hysterectomy, cholecystectomy, wisdom tooth removal, and right foot procedure for plantar fascitis. FAMILY HISTORY: Includes diabetes, coronary artery disease, and hypertension. SOCIAL HISTORY: The patient denies smoking, EtOH, or illicit drug use. ALLERGIES: VANCOMYCIN. CURRENT MEDICATIONS: Include, 1. Toujeo 75 units daily. 2. Metformin 1000 mg p.o. b.i.d. 3. Humalog 5 units with meals three times a day. 4. Simvastatin 20 mg at bedtime. 5. Lisinopril 10 mg daily. REVIEW OF SYSTEMS: GENERAL: The patient complains of fever, chills, and fatigue. HEAD, EYES, EARS, NOSE, AND THROAT: Denies sore throat, rhinorrhea, or congestion. CARDIOVASCULAR: Denies chest pain or palpitations. RESPIRATORY: Denies cough or shortness of breath. GASTROINTESTINAL: Denies nausea, vomiting, diarrhea, or constipation. GENITOURINARY: Complains of dysuria and frequency. MUSCULOSKELETAL: Complains of chronic low back pain. NEUROLOGIC: Denies headache. DERM: Complains of pain and erythema to the left lower extremity. LABORATORY DATA: White blood cell count 10.5, hemoglobin 15.2, hematocrit 47.8, platelets 227. Sodium 139, potassium 4.0, BUN is 12, creatinine 0.76, GFR is 81, glucose 289. Lactic acid 1.6. AST 24, ALT 22. Urine positive for protein, glucose, ketones, blood, and 2+ bacteria. PHYSICAL EXAMINATION: VITAL SIGNS: Temperature is 98.5, pulse is 92, respiratory rate is 18, oxygen is 99% on room air, and blood pressure is 130/83. GENERAL: The patient is alert and oriented, in no acute distress. She is morbidly obese. HEAD, EYES, EARS, NOSE, AND THROAT: Normocephalic and atraumatic. Sclerae are clear. Extraocular muscles are intact bilaterally. Pupils are equal, round, and reactive to light. She has moist mucous membranes. NECK: Supple without lymphadenopathy. CARDIOVASCULAR: Regular rate and rhythm. Normal S1 and S2 with no murmurs, rubs, or gallops. LUNGS: Clear to auscultation bilaterally without wheezes, rales, or rhonchi. ABDOMEN: Soft and nontender. No rebound or guarding. No masses. EXTREMITIES: Chronic venous stasis changes to bilateral lower extremities, left greater than right with erythema and superficial warmth located to the distal anterior left lower extremity. NEUROLOGIC: Nonfocal with cranial nerves 2 through 12 grossly intact. ASSESSMENT AND PLAN: 1. Cellulitis of the left lower extremity. We will resume the patient on IV Zosyn and Levaquin and follow up ordered blood cultures. We will repeat CBC in the morning. 2. Lymphedema. We will encourage leg elevation. 3. Urinary tract infection. We will follow up urine culture and resume IV antibiotics as stated. 4. Insulin-dependent diabetes mellitus. We will resume the patient's basal insulin and Humalog mealtime insulin therapy. She will be placed on a carbohydrate restricted diet. A.c. and bedtime glucose checks are ordered. 5. Hypertension. The patient is hemodynamically stable and will be resumed on her SHELLEY inhibitor. 6. Dyslipidemia. We will resume the patient's statin. 7. Prophylaxis. We will provide Lovenox for DVT prophylaxis and famotidine for GI prophylaxis. 8. Code status is full. Job ID: [id number]
[2019-10-10 05:20] LABS: Hemoglobin 13.8 g/dL (12.0-16.0); Mean Corpuscular HGB CONC 32.2 g/dL (32.0-36.0); Mean Corpuscular Hemoglobin 29.4 pg (27.0-31.0); Mean Corpuscular Volume 91.2 fL (78.0-98.0); Mean Platelet Volume 8.3 fL (7.4-10.4); Platelet Count 178 thou/uL (130-400); RBC Distribution Width 11.5 % (11.5-14.5); White Blood Cell (WBC) Count 7.8 thou/uL (4.8-10.8)
[2019-10-10] MEDS: Piperacillin/Tazobactam 3.375 GM in Sodium Chloride 0.9% 100 ML IVPB SCH ×4 (05:29→23:33)
[2019-10-10 05:34] LABS: ALT (SGPT) 19 U/L (8-55); AST (SGOT) 22 U/L (5-34); Alkaline Phosphatase 83 U/L (40-110); Anion Gap 13 mmol/L (10-20); BUN (Urea Nitrogen) 9 mg/dL (7.0-18.7); Bilirubin, Total 0.9 mg/dL (0.2-1.2); Calc. Creatinine Clearance 234 mL/min (70-130); Calcium 8.5 mg/dL (7.8-10.44); Carbon Dioxide 23 mmol/L (22-29); Chloride 107 mmol/L (98-107); Estimated GFR-MDRD Greater than 90; Globulin 3.3 g/dL (2.4-3.5); Glucose 182 mg/dL (70-105); Potassium 3.6 mmol/L (3.5-5.1); Protein, Total 6.3 g/dL (6.0-8.3); Sodium 139 mmol/L (136-145)
[2019-10-10 05:47] LABS: Eosinophils 1 % (0-10); Lymphocytes 21 % (21-51); MDiff Complete? YES; Monocytes 22 % (0-10); Neutrophil 56 % (42-75); Platelet Morphology Comment Appears Adequate; RBC Morphology Normal
[2019-10-10] MEDS: Lantus 1000 UNITS/10 ML VIAL SC SCH (08:47)
[2019-10-10] MEDS: HumaLOG 300 UNITS/3 ML VIAL SC SCH ×3 (08:48→17:52)
[2019-10-10] MEDS: metFORMIN 500 MG TAB PO SCH ×2 (08:49→17:52)
[2019-10-10] MEDS: Lisinopril 10 MG TAB PO SCH (08:49)
[2019-10-10] MEDS: Enoxaparin Sodium 40 MG/0.4 ML SYRINGE SC SCH (08:49)
[2019-10-10] MEDS: Famotidine 20 MG TAB PO SCH ×2 (08:49→20:52)
[2019-10-10] MEDS ORDERED: INSULIN GLARGINE HUM REC ANLOG 75 UNIT SC SCH (09:00)
[2019-10-10] MEDS ORDERED: [UNRECOGNIZED DRUG - OTHER] SC SCH (09:00)
[2019-10-10] MEDS: Acetaminophen/Codeine 30-300mg Tablet PO PRN (13:15)
[2019-10-10] MEDS: Atorvastatin Calcium 10 MG TAB PO SCH (20:52)
[2019-10-11] MEDS: Piperacillin/Tazobactam 3.375 GM in Sodium Chloride 0.9% 100 ML IVPB SCH ×4 (05:23→23:53)
[2019-10-11] MEDS: Enoxaparin Sodium 40 MG/0.4 ML SYRINGE SC SCH (08:31)
[2019-10-11] MEDS: metFORMIN 500 MG TAB PO SCH ×2 (08:33→17:34)
[2019-10-11] MEDS: Famotidine 20 MG TAB PO SCH ×2 (08:34→20:30)
[2019-10-11] MEDS: HumaLOG 300 UNITS/3 ML VIAL SC SCH ×3 (08:35→17:35)
[2019-10-11] MEDS: Lisinopril 10 MG TAB PO SCH (08:41)
[2019-10-11] MEDS: Lantus 1000 UNITS/10 ML VIAL SC SCH (08:42)
[2019-10-11] MEDS: Acetaminophen 500 MG TAB PO PRN (17:33)
[2019-10-11] MEDS: Atorvastatin Calcium 10 MG TAB PO SCH (20:30)
[2019-10-12] MEDS: Piperacillin/Tazobactam 3.375 GM in Sodium Chloride 0.9% 100 ML IVPB SCH ×4 (05:56→23:23)
[2019-10-12 06:03] LABS: Band 4 % (5-11); Eosinophils 2 % (0-10); Hemoglobin 13.6 g/dL (12.0-16.0); Lymphocytes 24 % (21-51); MDiff Complete? YES; Mean Corpuscular HGB CONC 31.7 g/dL (32.0-36.0); Mean Corpuscular Volume 91.6 fL (78.0-98.0); Mean Platelet Volume 8.8 fL (7.4-10.4); Monocytes 16 % (0-10); Neutrophil 52 % (42-75); Platelet Count 189 thou/uL (130-400); Platelet Morphology Comment Appears Adequate; RBC Distribution Width 11.5 % (11.5-14.5); RBC Morphology Normal; Reactive Lymphocytes 2 % (0-10); Red Blood Cell (RBC) Count 4.69 mill/uL (4.20-5.40)
[2019-10-12] MEDS: Lisinopril 10 MG TAB PO SCH (08:14)
[2019-10-12] MEDS: metFORMIN 500 MG TAB PO SCH ×2 (08:14→17:43)
[2019-10-12] MEDS: Famotidine 20 MG TAB PO SCH ×2 (08:14→20:21)
[2019-10-12] MEDS: HumaLOG 300 UNITS/3 ML VIAL SC SCH ×3 (08:16→17:41)
[2019-10-12] MEDS: Enoxaparin Sodium 40 MG/0.4 ML SYRINGE SC SCH (08:16)
[2019-10-12] MEDS: Lantus 1000 UNITS/10 ML VIAL SC SCH (08:18)
[2019-10-12] MEDS: Sulfameth/Trimethoprim DS 800-160mg TAB PO SCH ×2 (08:22→20:21)
[2019-10-12] MEDS: Acetaminophen 500 MG TAB PO PRN (12:02)
[2019-10-12] MEDS: Atorvastatin Calcium 10 MG TAB PO SCH (20:20)
[2019-10-13] MEDS: Piperacillin/Tazobactam 3.375 GM in Sodium Chloride 0.9% 100 ML IVPB SCH ×4 (05:39→23:53)
[2019-10-13] MEDS: Lisinopril 10 MG TAB PO SCH (09:01)
[2019-10-13] MEDS: Famotidine 20 MG TAB PO SCH ×2 (09:01→20:27)
[2019-10-13] MEDS: metFORMIN 500 MG TAB PO SCH ×2 (09:01→17:40)
[2019-10-13] MEDS: Sulfameth/Trimethoprim DS 800-160mg TAB PO SCH ×2 (09:03→20:27)
[2019-10-13] MEDS: Enoxaparin Sodium 40 MG/0.4 ML SYRINGE SC SCH (09:06)
[2019-10-13] MEDS: HumaLOG 300 UNITS/3 ML VIAL SC SCH ×3 (09:09→17:45)
[2019-10-13] MEDS: Lantus 1000 UNITS/10 ML VIAL SC SCH (09:09)
[2019-10-13] MEDS: Atorvastatin Calcium 10 MG TAB PO SCH (20:27)
[2019-10-14 05:20] LABS: Hemoglobin 13.8 g/dL (12.0-16.0); Platelet Count 255 thou/uL (130-400)
[2019-10-14] MEDS: Piperacillin/Tazobactam 3.375 GM in Sodium Chloride 0.9% 100 ML IVPB SCH ×4 (06:03→23:35)
[2019-10-14] MEDS: Famotidine 20 MG TAB PO SCH ×2 (08:48→20:32)
[2019-10-14] MEDS: metFORMIN 500 MG TAB PO SCH ×2 (08:48→17:39)
[2019-10-14] MEDS: Sulfameth/Trimethoprim DS 800-160mg TAB PO SCH ×2 (08:49→20:33)
[2019-10-14] MEDS: Lisinopril 10 MG TAB PO SCH (08:50)
[2019-10-14] MEDS: Enoxaparin Sodium 40 MG/0.4 ML SYRINGE SC SCH (08:51)
[2019-10-14] MEDS: Lantus 1000 UNITS/10 ML VIAL SC SCH (08:52)
[2019-10-14] MEDS: HumaLOG 300 UNITS/3 ML VIAL SC SCH ×3 (08:52→17:40)
[2019-10-14] MEDS: Atorvastatin Calcium 10 MG TAB PO SCH (20:32)
[2019-10-15] MEDS: Piperacillin/Tazobactam 3.375 GM in Sodium Chloride 0.9% 100 ML IVPB SCH ×4 (05:34→23:30)
[2019-10-15] MEDS: Famotidine 20 MG TAB PO SCH ×2 (08:29→20:23)
[2019-10-15] MEDS: HumaLOG 300 UNITS/3 ML VIAL SC SCH ×3 (08:29→17:28)
[2019-10-15] MEDS: Lantus 1000 UNITS/10 ML VIAL SC SCH (08:29)
[2019-10-15] MEDS: metFORMIN 500 MG TAB PO SCH ×2 (08:30→17:27)
[2019-10-15] MEDS: Sulfameth/Trimethoprim DS 800-160mg TAB PO SCH ×2 (08:30→20:23)
[2019-10-15] MEDS: Lisinopril 10 MG TAB PO SCH (08:33)
[2019-10-15] MEDS: Enoxaparin Sodium 40 MG/0.4 ML SYRINGE SC SCH (08:34)
[2019-10-15] MEDS: Atorvastatin Calcium 10 MG TAB PO SCH (20:23)
[2019-10-16 05:10] LABS: Hemoglobin 14.3 g/dL (12.0-16.0); Platelet Count 227 thou/uL (130-400)
[2019-10-16 05:13] LABS: Calc. Creatinine Clearance 234 mL/min (70-130); Estimated GFR-MDRD Greater than 90
[2019-10-16] MEDS: Piperacillin/Tazobactam 3.375 GM in Sodium Chloride 0.9% 100 ML IVPB SCH (05:55)
[2019-10-16] MEDS: metFORMIN 500 MG TAB PO SCH (08:15)
[2019-10-16] MEDS: Enoxaparin Sodium 40 MG/0.4 ML SYRINGE SC SCH (08:15)
[2019-10-16] MEDS: Lisinopril 10 MG TAB PO SCH (08:16)
[2019-10-16] MEDS: Sulfameth/Trimethoprim DS 800-160mg TAB PO SCH (08:16)
[2019-10-16] MEDS: Famotidine 20 MG TAB PO SCH (08:16)
[2019-10-16] MEDS: Lantus 1000 UNITS/10 ML VIAL SC SCH (08:17)
[2019-10-16] MEDS: HumaLOG 300 UNITS/3 ML VIAL SC SCH (08:17)
[2019-10-16 09:54] VITALS: BP 140/52; TEMP 98.3
--- NOTE | 2019-10-16 10:03 | DIS ---
DATE OF ADMISSION: 10/09/2019 DATE OF DISCHARGE: 10/16/2019 ADMISSION DIAGNOSES: Cellulitis of left lower extremity, lymphedema, urinary tract infection, insulin-dependent diabetes mellitus, hypertension, dyslipidemia, and obesity. PROCEDURES: None. HOSPITAL COURSE: A 49-year-old female, who is morbidly obese with accompanying lymphedema and recurrent cellulitis, infections, presented to the [facility] Emergency Department with complaints of acute development of erythema, pain, and swelling to the left lower extremity, accompanied by fever with T-max of 100.7. The patient had been started on p.o. ciprofloxacin 1 day prior to treat urinary tract infection. Due to worsening symptoms involving the left lower extremity, she was evaluated in the emergency department in light of lack of improvement on oral antibiotics. Urine and blood cultures were obtained, and the patient was started on IV Zosyn and Levaquin and admitted to the floor. The patient's labs were trended and she did show improvement in her white blood cell count, which was borderline on admission. She did have few temperature readings, elevating up into 99+, however, this resolved as well. Review of her blood and urine cultures showed no growth to date. The patient did have occupational therapy work with her in regard to her lymphedema, this will be continued as an outpatient. The patient showed slow but steady improvement in regard to the erythema and discomfort of the left lower extremity and at this time, is able to discharge home on continued short course of oral antibiotic therapy. DISPOSITION: The patient was discharged home and may follow up with her primary care provider, Dr. Doyle in approximately 1 week. She has a written order to continue occupational therapy as an outpatient in regard to her lymphedema. DISCHARGE MEDICATIONS: Will include, 1. Bactrim DS one tab p.o. b.i.d. x5 days. 2. Keflex 500 mg p.o. b.i.d. x5 days. She will resume her usual home medications, 1. Metformin 1000 mg b.i.d. 2. Simvastatin 20 mg at bedtime. 3. Lisinopril 10 mg daily. 4. Toujeo 75 units subcutaneously daily. 5. Humalog 10 units with meals. Job ID: [id number]
== END 2019-10-16 10:20 | disposition home or self-care (01) | DRG 603 ==
LOC: BURERS 16:54 → BURMED 18:28
PROVIDERS: ADMIT Family Medicine; ATTEND Family Medicine
DX: L03.116 Cellulitis of left lower limb (principal); N39.0 Urinary tract infection, site not specified; Z68.43 Body mass index [BMI] 50.0-59.9, adult; I89.0 Lymphedema, not elsewhere classified; E11.9 Type 2 diabetes mellitus without complications; E78.5 Hyperlipidemia, unspecified; F32.9 Major depressive disorder, single episode, unspecified; E78.00 Pure hypercholesterolemia, unspecified; E66.01 Morbid (severe) obesity due to excess calories; Z79.4 Long term (current) use of insulin; Z90.49 Acquired absence of other specified parts of digestive tract; Z90.710 Acquired absence of both cervix and uterus; Z88.1 Allergy status to other antibiotic agents
CPT/HCPCS: 36415; 36416; 51701; 80053; 81003; 81015; 82565; 83605; 85014; 85018; 85025; 85049; 86900; 86901; 87040; 87086; 94760; 96365; 96375; A4353; J1650; J1815; J1956; J2543; J3490

== ENCOUNTER 2020-08-24 12:11 | Emergency (ER) | payer BC ==
[2020-08-24] MEDS ORDERED: Ketorolac Tromethamine 30 MG/ML VIAL ONE (13:11)
[2020-08-24] MEDS ORDERED: Lidocaine 1% PF 5 ML VIAL ONE (13:11)
[2020-08-24] MEDS ORDERED: Cefepime 2 GM VIAL ONE (13:11)
[2020-08-24 13:14] LABS: #Basophils 0.1 thou/uL (0.0-0.2); #Eosinphils 0.1 thou/uL (0.0-0.7); #Monocytes 1.1 thou/uL (0.11-0.59); #Neutrophils 5.4 thou/uL (1.40-6.50); %Basophils 0.9 % (0.0-1.0); %Eosinophils 0.8 % (0.0-10.0); %Monocytes 13.1 % (0.0-10.0); %Neutrophils 62.2 % (42.0-75.0); Hemoglobin 15.1 g/dL (12.0-16.0); Mean Corpuscular HGB CONC 32.3 g/dL (32.0-36.0); Mean Corpuscular Hemoglobin 29.5 pg (27.0-31.0); Mean Corpuscular Volume 91.3 fL (78.0-98.0); Mean Platelet Volume 8.9 fL (7.4-10.4); Platelet Count 232 thou/uL (130-400); RBC Distribution Width 12.5 % (11.5-14.5); Red Blood Cell (RBC) Count 5.12 mill/uL (4.20-5.40); White Blood Cell (WBC) Count 8.6 thou/uL (4.8-10.8)
[2020-08-24 13:28] LABS: Anion Gap 13 mmol/L (10-20); BUN (Urea Nitrogen) 12 mg/dL (9.8-20.1); Calc. Creatinine Clearance 0 mL/min (70-130); Calcium 9.3 mg/dL (7.8-10.44); Carbon Dioxide 26 mmol/L (22-29); Chloride 103 mmol/L (98-107); Glucose 277 mg/dL (70-105); Sodium 138 mmol/L (136-145)
== END 2020-08-24 14:25 | disposition home or self-care (01) ==
LOC: BURERS 12:11
DX: L03.116 Cellulitis of left lower limb (principal); L02.416 Cutaneous abscess of left lower limb; E11.9 Type 2 diabetes mellitus without complications; I10 Essential (primary) hypertension; Z79.899 Other long term (current) drug therapy; Z79.4 Long term (current) use of insulin
CPT/HCPCS: 10060; 80048; 83605; 85025; 87040; 96365; 96375; J0692; J1885

== ENCOUNTER 2020-11-06 06:32 | Emergency (ER) | payer BC ==
[2020-11-06] MEDS ORDERED: Sulfameth/Trimethoprim DS 800-160mg TAB ONE (07:05)
[2020-11-06] MEDS ORDERED: Cephalexin 250 MG CAP ONE (07:05)
== END 2020-11-06 07:11 | disposition home or self-care (01) ==
LOC: BURERS 06:32
DX: L02.416 Cutaneous abscess of left lower limb (principal); L03.116 Cellulitis of left lower limb; E11.9 Type 2 diabetes mellitus without complications; I10 Essential (primary) hypertension; E78.5 Hyperlipidemia, unspecified; Z79.899 Other long term (current) drug therapy; Z79.4 Long term (current) use of insulin
CPT/HCPCS: 99283

== ENCOUNTER 2020-12-16 06:47 | Emergency (ER) | payer BC ==
[2020-12-16] MEDS ORDERED: Lidocaine 1% (PF) 30 ML VIAL ONE (07:10)
[2020-12-16] MEDS ORDERED: Clindamycin 150 MG CAP ONE (07:36)
== END 2020-12-16 07:38 | disposition home or self-care (01) ==
LOC: BURERS 06:47
DX: L02.416 Cutaneous abscess of left lower limb (principal); L03.116 Cellulitis of left lower limb; I89.0 Lymphedema, not elsewhere classified; E11.9 Type 2 diabetes mellitus without complications; I10 Essential (primary) hypertension; E78.5 Hyperlipidemia, unspecified; Z79.899 Other long term (current) drug therapy; Z79.4 Long term (current) use of insulin
CPT/HCPCS: 10060; J2001

== ENCOUNTER 2021-03-26 10:13 | Emergency (ER) | payer BC ==
[2021-03-26] MEDS ORDERED: Clindamycin/D5W 600 mg/50 ml Premix Bag ONE ×2 (10:50→10:53)
== END 2021-03-26 11:19 | disposition home or self-care (01) ==
LOC: BURERS 10:13
DX: L02.416 Cutaneous abscess of left lower limb (principal); L03.116 Cellulitis of left lower limb; E11.9 Type 2 diabetes mellitus without complications; I10 Essential (primary) hypertension; E78.5 Hyperlipidemia, unspecified; Z79.4 Long term (current) use of insulin; Z79.899 Other long term (current) drug therapy
CPT/HCPCS: 96365; J3490

== ENCOUNTER 2021-04-02 17:29 | Inpatient (IN) | payer BC ==
[2021-04-02 18:31] VITALS: BMI 52.2
[2021-04-02] MEDS ORDERED: Sodium Chloride 0.9% 1,000 ML IV SCH (19:30)
[2021-04-02] MEDS ORDERED: Dextrose 50% Abboject 50 ML SYRINGE SLOW IVP PRN (19:40)
[2021-04-02] MEDS ORDERED: Dextrose 5% in Water 1,000 ML IV PRN (19:40)
[2021-04-02 19:53] LABS: #Basophils 0.1 thou/uL (0.0-0.2); #Eosinphils 0.1 thou/uL (0.0-0.7); #Lymphocytes 2.1 thou/uL (1.20-3.40); #Monocytes 1.5 thou/uL (0.11-0.59); #Neutrophils 6.2 thou/uL (1.40-6.50); %Basophils 1.2 % (0.0-1.0); %Eosinophils 0.9 % (0.0-10.0); %Lymphocytes 20.9 % (21.0-51.0); %Monocytes 14.9 % (0.0-10.0); %Neutrophils 62.1 % (42.0-75.0); Mean Corpuscular HGB CONC 32.7 g/dL (32.0-36.0); Mean Corpuscular Hemoglobin 29.3 pg (27.0-31.0); Mean Corpuscular Volume 89.8 fL (78.0-98.0); Mean Platelet Volume 7.4 fL (7.4-10.4); Platelet Count 243 thou/uL (130-400); RBC Distribution Width 12.2 % (11.5-14.5); Red Blood Cell (RBC) Count 4.78 mill/uL (4.20-5.40)
[2021-04-02 20:09] LABS: ALT (SGPT) 23 U/L (8-55); AST (SGOT) 20 U/L (5-34); Alkaline Phosphatase 132 U/L (40-110); Anion Gap 14 mmol/L (10-20); BUN (Urea Nitrogen) 8 mg/dL (9.8-20.1); Bilirubin, Total 0.9 mg/dL (0.2-1.2); Calc. Creatinine Clearance 197 mL/min (70-130); Calcium 8.5 mg/dL (7.8-10.44); Carbon Dioxide 25 mmol/L (22-29); Chloride 102 mmol/L (98-107); Globulin 3.5 g/dL (2.4-3.5); Glucose 299 mg/dL (70-105); Potassium 3.8 mmol/L (3.5-5.1); Protein, Total 6.5 g/dL (6.0-8.3); Sodium 137 mmol/L (136-145)
[2021-04-02] MEDS ORDERED: Piperacillin/Tazobactam 3.375 GM in Sodium Chloride 0.9% 100 ML IVPB SCH (20:15)
[2021-04-02] MEDS: Atorvastatin Calcium 10 MG TAB PO SCH (20:36)
[2021-04-02] MEDS: traMADol HCl 50 MG TAB PO PRN (20:36)
[2021-04-02] MEDS: HumaLOG 300 UNITS/3 ML VIAL SC PRN (21:01)
[2021-04-03] MEDS: Piperacillin/Tazobactam 3.375 GM in Sodium Chloride 0.9% 100 ML IVPB SCH ×3 (00:37→17:52)
[2021-04-03] MEDS: Floranex 1 GM Packet PO SCH (09:23)
[2021-04-03] MEDS: metFORMIN 500 MG TAB PO SCH ×2 (09:23→17:50)
[2021-04-03] MEDS: Aspirin 81 mg Enteric Coated Tablet PO SCH (09:23)
[2021-04-03] MEDS: Lantus 1000 UNITS/10 ML VIAL SC SCH (09:24)
[2021-04-03] MEDS: Furosemide 20 MG TAB PO SCH (09:24)
[2021-04-03] MEDS: Lisinopril 10 MG TAB PO SCH (09:24)
[2021-04-03] MEDS: HumaLOG 300 UNITS/3 ML VIAL SC SCH ×3 (09:25→17:51)
[2021-04-03 12:09] LABS: SARS-CoV-2 PCR by NAA Not Detected (NotDetected)
[2021-04-03] MEDS: traMADol HCl 50 MG TAB PO PRN (12:40)
[2021-04-03] MEDS: HumaLOG 300 UNITS/3 ML VIAL SC PRN (20:56)
[2021-04-03] MEDS: Atorvastatin Calcium 10 MG TAB PO SCH (20:57)
[2021-04-03] MEDS: Enoxaparin Sodium 30 MG/0.3 ML SYRINGE SC SCH (20:57)
[2021-04-04] MEDS: traMADol HCl 50 MG TAB PO PRN ×2 (00:28→20:29)
[2021-04-04] MEDS: Piperacillin/Tazobactam 3.375 GM in Sodium Chloride 0.9% 100 ML IVPB SCH ×3 (00:30→16:49)
[2021-04-04] MEDS: HumaLOG 300 UNITS/3 ML VIAL SC SCH ×3 (08:59→16:54)
[2021-04-04] MEDS: Lantus 1000 UNITS/10 ML VIAL SC SCH (09:00)
[2021-04-04] MEDS: metFORMIN 500 MG TAB PO SCH ×2 (09:01→16:50)
[2021-04-04] MEDS: Floranex 1 GM Packet PO SCH (09:02)
[2021-04-04] MEDS: Furosemide 20 MG TAB PO SCH (09:02)
[2021-04-04] MEDS: Lisinopril 10 MG TAB PO SCH (09:02)
[2021-04-04] MEDS: Aspirin 81 mg Enteric Coated Tablet PO SCH (09:02)
[2021-04-04] MEDS: Mupirocin 2% Ointment 22 GM Tube TOP SCH ×2 (14:06→20:30)
[2021-04-04] MEDS: Atorvastatin Calcium 10 MG TAB PO SCH (20:29)
[2021-04-04] MEDS: Enoxaparin Sodium 30 MG/0.3 ML SYRINGE SC SCH (20:31)
[2021-04-04] MEDS: Triamcinolone 0.1% Cream 15 GM TUBE TOP PRN (20:31)
[2021-04-05] MEDS: Piperacillin/Tazobactam 3.375 GM in Sodium Chloride 0.9% 100 ML IVPB SCH ×3 (00:41→17:40)
[2021-04-05] MEDS: metFORMIN 500 MG TAB PO SCH ×2 (09:01→17:42)
[2021-04-05] MEDS: Aspirin 81 mg Enteric Coated Tablet PO SCH (09:02)
[2021-04-05] MEDS: Furosemide 20 MG TAB PO SCH (09:02)
[2021-04-05] MEDS: Lisinopril 10 MG TAB PO SCH (09:02)
[2021-04-05] MEDS: Floranex 1 GM Packet PO SCH (09:03)
[2021-04-05] MEDS: HumaLOG 300 UNITS/3 ML VIAL SC SCH ×3 (09:04→17:41)
[2021-04-05] MEDS: Mupirocin 2% Ointment 22 GM Tube TOP SCH ×3 (09:24→22:23)
[2021-04-05] MEDS: Lantus 1000 UNITS/10 ML VIAL SC SCH (09:24)
[2021-04-05] MEDS: Acetaminophen 500 MG TAB PO PRN (12:11)
[2021-04-05] MEDS: Atorvastatin Calcium 10 MG TAB PO SCH (20:23)
[2021-04-05] MEDS: Enoxaparin Sodium 30 MG/0.3 ML SYRINGE SC SCH (20:24)
[2021-04-05] MEDS: Triamcinolone 0.1% Cream 15 GM TUBE TOP PRN (20:28)
[2021-04-06] MEDS: Piperacillin/Tazobactam 3.375 GM in Sodium Chloride 0.9% 100 ML IVPB SCH ×2 (00:40→08:32)
[2021-04-06] MEDS: traMADol HCl 50 MG TAB PO PRN (00:47)
[2021-04-06 04:44] VITALS: BP 149/90; TEMP 98.2
[2021-04-06] MEDS: Aspirin 81 mg Enteric Coated Tablet PO SCH (08:33)
[2021-04-06] MEDS: metFORMIN 500 MG TAB PO SCH (08:33)
[2021-04-06] MEDS: Floranex 1 GM Packet PO SCH (08:33)
[2021-04-06] MEDS: Lisinopril 10 MG TAB PO SCH (08:34)
[2021-04-06] MEDS: Furosemide 20 MG TAB PO SCH (08:34)
[2021-04-06] MEDS: HumaLOG 300 UNITS/3 ML VIAL SC SCH ×2 (08:35→12:38)
[2021-04-06] MEDS: Lantus 1000 UNITS/10 ML VIAL SC SCH (08:36)
[2021-04-06] MEDS: Mupirocin 2% Ointment 22 GM Tube TOP SCH (08:37)
[2021-04-06] MEDS: Acetaminophen 500 MG TAB PO PRN (08:40)
[2021-04-06] MEDS ORDERED: Amoxicillin/Potassium Clav 875 MG TAB PO SCH (21:00)
== END 2021-04-06 17:00 | disposition home or self-care (01) | DRG 603 ==
LOC: BURMED 17:29
PROVIDERS: ADMIT Family Medicine; ATTEND Family Medicine
DX: L03.115 Cellulitis of right lower limb (principal); E78.5 Hyperlipidemia, unspecified; I89.0 Lymphedema, not elsewhere classified; I10 Essential (primary) hypertension; E11.65 Type 2 diabetes mellitus with hyperglycemia; Z20.822 Contact with and (suspected) exposure to COVID-19
CPT/HCPCS: 36416; 80053; 85025; J1650; J1815; J2543; J3490; J7050; U0003; U0005